=== PATIENT | female | born 1950 | race Caucasian/White ===

== ENCOUNTER 2016-12-01 00:28 | Emergency (ER) | payer OTHER ==
[~2016-12-01] VITALS: Ht 165.1 cm; Wt 72.7 kg
[~2016-12-01 00:28] MED LIST: AMOXICILLIN500 MG PO; FLUOXETINE HCL40 MG PO; HYDROCHLOROTH12.5 M3 PO; KEFLEX500 MG PO; LIPITOR20 MG PO; PRILOSEC20 MG PO
[2016-12-01] MEDS ORDERED: PERCOCET 5/31 TABLET PO (02:22)
[2016-12-01] MEDS ORDERED: VALIUM5 MG PO (02:22)
[2016-12-01] MEDS ORDERED: MEDROL DOSEPAK4 MG PO (02:22)
[2016-12-01 02:34] VITALS: BP 128/104
== END 2016-12-01 02:35 | disposition home or self-care (01) ==
LOC: EME 00:28
DX: M54.16 Radiculopathy, lumbar region (principal); M54.31 Sciatica, right side; E11.9 Type 2 diabetes mellitus without complications
CPT/HCPCS: 99281; 99284; J1885